=== PATIENT | male | born 1940 | race Caucasian/White ===

== ENCOUNTER → 2017-12-29 13:59 | Outpatient (REF) | payer MEDICARE, SELFPAY ==
[2017-12-29 14:22] LABS: Microscopic, Urine URINE MICROSCOPIC (MICROSCOPIC)
[2017-12-29 14:50] LABS: Appearance,Urine TURBID (Clear); Blood, Urine 3+ (Negative); Color,Urine YELLOW (Yellow); Glucose,Urine (UA) Negative (Negative); Ketones,Urine TRACE (Negative); Leukocyte Esterase,Urine 2+ (Negative); Nitrate,Urine Negative (Negative); Protein,Urine 2+ (Negative); Specific Gravity, Urine >= 1.030 (1.005-1.030); Urobilinogen,Urine 0.2 EU/dl (0.2)
[2017-12-29 14:58] LABS: Bilirubin,Urine Negative (Negative)
[2017-12-29 15:03] LABS: Amorphous Sediment,Urine 3+ /lpf; Bacteria,Urine 3+ /lpf; Mucus,Urine 3+ /lpf; WBC,Urine TNTC #/hpf (0-3)
== END ==
LOC: LAB 13:59
PROVIDERS: PCP Internal Medicine; Visit Provider Internal Medicine
DX: N18.3 Chronic kidney disease, stage 3 (moderate) (principal)
CPT/HCPCS: 81001; 87086; 87088; 87186

== ENCOUNTER → 2018-06-27 10:34 | Outpatient (CLI) | payer MEDICARE, SELFPAY ==
--- NOTE | 2018-06-27 10:48 | XR_ITS ---
XR foot RT min 3V HISTORY: Pain and swelling, ulcer of the right great toe and fifth toe ITS.REASON: LESION RT FOOT ORDERING PHYSICIAN: Pollo Schmitt PATIENT AGE: 78 years COMPARISON: None FINDINGS: No fracture or dislocation. No obvious bony lytic process. Bandage artifact is present along the medial aspect of the first metatarsophalangeal joint and the distal aspect of the fifth metatarsal. Prominent vascular calcification is noted. There is a small calcaneal spur 11 mm. Flexion deformity involves the second and third toe. IMPRESSION: No erosive changes evident that would indicate acute osteomyelitis.
[2018-06-27 11:57] LABS: Alanine Aminotransferase 17 U/L (12-78); Albumin Level 3.3 gm/dL (3.4-5.0); Albumin/Globulin Ratio 0.8 (1.1-1.8); Alkaline Phosphatase 107 U/L (46-116); Anion Gap 13.6 mEq/L (5-15); Aspartate Amino Transferase 19 U/L (15-37); Bilirubin,Total 0.5 mg/dL (0.2-1.0); Blood Urea Nitrogen 43 mg/dL (7-18); C-Reactive Protein 10.1 mg/L (0.0-0.9); Calcium 8.3 mg/dL (8.5-10.1); Carbon Dioxide 31 mmol/L (21.0-32.0); Chloride 98 mmol/L (98-107); Estimated Glomerular Filt Rate 12 ml/min (>60); GFR (African American) 14 ML/MIN (>60); Globulin 4.2 gm/dl (1.3-3.2); Glucose 87 mg/dL (74-106); Potassium 3.6 mmoL/L (3.5-5.1); Sodium 139 mmol/L (136-145); Total Protein,Serum 7.5 gm/dL (6.4-8.2)
[2018-06-27 12:15] LABS: Erythrocyte Sedimentation Rate > 120 mm/hr (0-20)
[2018-06-27 13:23] LABS: Creatinine,Serum 4.86 mg/dL (0.70-1.30)
== END ==
PROVIDERS: PCP Internal Medicine; Visit Provider Internal Medicine
DX: L98.9 Disorder of the skin and subcutaneous tissue, unspecified (principal); M79.671 Pain in right foot
CPT/HCPCS: 36415; 73630; 80053; 85651; 86140